=== PATIENT | female | born 1975 | race Two or more races ===

== ENCOUNTER 2018-05-13 16:23 | Emergency (ER) | payer OTHER ==
[~2018-05-13] VITALS: Ht 165.1 cm; Wt 71.2 kg
[~2018-05-13 16:23] MED LIST: DOLOGEN CAPLET1 EACH PO; TRAMADOL HCL50 MG PO
[2018-05-13] MEDS ORDERED: TYLENOL ARTHRI650 MG (17:21)
== END 2018-05-13 23:39 | disposition home or self-care (01) ==
LOC: ER 16:23
DX: E86.0 Dehydration (principal); R53.1 Weakness

== ENCOUNTER 2019-04-01 14:43 | Emergency (ER) | payer OTHER ==
[~2019-04-01] VITALS: Ht 165.1 cm; Wt 59.9 kg
[~2019-04-01 14:43] MED LIST changes: +TYLENOL ARTHRI650 MG
== END 2019-04-01 19:20 | disposition home or self-care (01) ==
LOC: ER 14:43
DX: M53.1 Cervicobrachial syndrome (principal); M25.561 Pain in right knee; M25.562 Pain in left knee

== ENCOUNTER → 2019-06-22 | Emergency (ER) | payer OTHER ==
[~2019-06-22] VITALS: Ht 165.1 cm; Wt 59.0 kg
[~2019-06-22] MED LIST changes: +ZITHROMAX500 MG PO
== END | disposition home or self-care (01) ==
LOC: ER 09:26
DX: R07.89 Other chest pain (principal); R05 Cough; B96.0 Mycoplasma pneumoniae [M. pneumoniae] as the cause of diseases classified elsewhere

== ENCOUNTER 2019-10-10 10:14 | Emergency (ER) | payer OTHER ==
[~2019-10-10] VITALS: Ht 165.1 cm; Wt 53.5 kg
[2019-10-10] MEDS ORDERED: PREVACID15 MG PO (10:23)
[2019-10-10] MEDS ORDERED: TYLENOL ARTHRI650 MG PO (10:24)
== END 2019-10-10 21:19 | disposition home or self-care (01) ==
LOC: ER 10:14
DX: K63.89 Other specified diseases of intestine (principal); K50.018 Crohn's disease of small intestine with other complication

== ENCOUNTER 2020-01-04 22:42 | Emergency (ER) | payer OTHER ==
[~2020-01-04] VITALS: Ht 165.1 cm; Wt 51.3 kg
[~2020-01-04 22:42] MED LIST changes: +PREVACID15 MG PO; +TYLENOL ARTHRI650 MG PO
[2020-01-04] MEDS ORDERED: PROTONIX20 MG (22:51)
[2020-01-04] MEDS ORDERED: RAYOS1 MG (22:52)
[2020-01-04] MEDS ORDERED: PEPCID20 MG (22:52)
[2020-01-05] MEDS ORDERED: PROTONIX40 MG PO (03:56)
[2020-01-05] MEDS ORDERED: PEPCID40 MG PO (03:56)
== END 2020-01-05 04:12 | disposition home or self-care (01) ==
LOC: ER 22:42
DX: K50.00 Crohn's disease of small intestine without complications (principal); R10.13 Epigastric pain; F41.8 Other specified anxiety disorders

== ENCOUNTER 2020-02-17 19:59 | Emergency (ER) | payer OTHER ==
[~2020-02-17] VITALS: Ht 165.1 cm; Wt 52.2 kg
[~2020-02-17 19:59] MED LIST changes: +PEPCID20 MG; +PEPCID40 MG PO; +PROTONIX20 MG; +PROTONIX40 MG PO; +RAYOS1 MG
== END 2020-02-18 07:54 | disposition home or self-care (01) ==
LOC: ER 19:59
DX: K59.09 Other constipation (principal); K50.90 Crohn's disease, unspecified, without complications; R10.31 Right lower quadrant pain

== ENCOUNTER 2020-12-10 13:12 | Emergency (ER) | payer OTHER ==
[~2020-12-10] VITALS: Ht 165.1 cm; Wt 49.4 kg
[2020-12-10] MEDS ORDERED: HUMIRA PEN40 MG/0.2 SUBCUTANEO (13:28)
[2020-12-10] MEDS ORDERED: PEPCID AC20 MG PO (17:34)
[2020-12-10] MEDS ORDERED: LEVSIN/SL0.125 MG PO (17:34)
[2020-12-10] MEDS ORDERED: ONDANSETRON ODT4 MG PO (17:34)
== END 2020-12-10 17:49 ==
LOC: ER 13:12
DX: K29.70 Gastritis, unspecified, without bleeding (principal); Z20.822 Contact with and (suspected) exposure to COVID-19

== ENCOUNTER 2020-12-10 22:48 | Emergency (ER) | payer OTHER ==
[~2020-12-10] VITALS: Ht 165.1 cm; Wt 49.9 kg
[~2020-12-10 22:48] MED LIST changes: +HUMIRA PEN40 MG/0.2 SUBCUTANEO; +LEVSIN/SL0.125 MG PO; +ONDANSETRON ODT4 MG PO; +PEPCID AC20 MG PO
== END 2020-12-11 10:23 | disposition left against medical advice (07) ==
LOC: ER 22:48
DX: R10.13 Epigastric pain (principal); F41.8 Other specified anxiety disorders; R07.89 Other chest pain; K59.09 Other constipation; K50.90 Crohn's disease, unspecified, without complications; K86.0 Alcohol-induced chronic pancreatitis; R05 Cough; R53.1 Weakness; K52.89 Other specified noninfective gastroenteritis and colitis; A49.3 Mycoplasma infection, unspecified site; R21 Rash and other nonspecific skin eruption; Z20.822 Contact with and (suspected) exposure to COVID-19

== ENCOUNTER 2021-02-13 19:01 | Emergency (ER) | payer OTHER ==
[~2021-02-13] VITALS: Ht 165.1 cm; Wt 47.6 kg
[2021-02-13] MEDS ORDERED: IMURAN50 MG PO (19:32)
== END 2021-02-14 15:05 | disposition home or self-care (01) ==
LOC: ER 19:01
DX: K52.89 Other specified noninfective gastroenteritis and colitis (principal); K50.90 Crohn's disease, unspecified, without complications; R10.13 Epigastric pain; R19.7 Diarrhea, unspecified; R11.11 Vomiting without nausea

== ENCOUNTER 2021-03-05 14:45 | Outpatient (CLI) | payer OTHER ==
[~2021-03-05 14:45] MED LIST changes: +IMURAN50 MG PO
== END 2021-03-05 14:57 | disposition home or self-care (01) ==
LOC: RAD 14:45
PROVIDERS: ATTEND Specialist
DX: R07.89 Other chest pain (principal); J45.998 Other asthma

== ENCOUNTER 2021-09-20 16:44 | Emergency (ER) | payer OTHER ==
[~2021-09-20] VITALS: Ht 165.1 cm; Wt 53.5 kg
[2021-09-20] MEDS ORDERED: STELARA45 MG/0.1 (17:55)
== END 2021-09-20 20:29 | disposition home or self-care (01) ==
LOC: ER 16:44
DX: M54.9 Dorsalgia, unspecified (principal); R10.13 Epigastric pain; K51.80 Other ulcerative colitis without complications; Z88.8 Allergy status to other drugs, medicaments and biological substances

== ENCOUNTER → 2022-01-04 | Emergency (ER) | payer OTHER ==
[~2022-01-04] VITALS: Ht 165.1 cm; Wt 55.8 kg
[~2022-01-04] MED LIST changes: +MEDROLPACK PO; +NORFLEX100MG PO; +STELARA45 MG/0.1
== END | disposition home or self-care (01) ==
LOC: ER 00:23
DX: R07.89 Other chest pain (principal); R00.2 Palpitations; T50.905A Adverse effect of unspecified drugs, medicaments and biological substances, initial encounter; Y92.9 Unspecified place or not applicable; Z88.6 Allergy status to analgesic agent; Z88.8 Allergy status to other drugs, medicaments and biological substances; M79.7 Fibromyalgia

== ENCOUNTER 2023-04-09 16:03 | Emergency (ER) | payer OTHER ==
[~2023-04-09] VITALS: Ht 165.1 cm; Wt 70.3 kg
== END 2023-04-09 18:22 | disposition home or self-care (01) ==
LOC: ER 16:04
DX: R05.9 Cough, unspecified (principal); Z20.822 Contact with and (suspected) exposure to COVID-19; Z88.6 Allergy status to analgesic agent; Z88.8 Allergy status to other drugs, medicaments and biological substances

== ENCOUNTER 2024-07-16 13:48 | Emergency (ER) | payer OTHER ==
[~2024-07-16] VITALS: Ht 165.1 cm; Wt 59.0 kg
[2024-07-16 17:32] LABS: HEMATOCRIT 35.5 % (36.0-45.00); HEMOGLOBIN 11.4 g/dL (12.0-15.00); MEAN CELL VOLUME 75.7 fL (80.00-100.00); MEAN CORPUSCULAR HEMOGLOBIN 24.3 pg (27.00-32.0); MEAN CORPUSCULAR HGB CONC 32.1 g/dl (32.0-36.0); PLATELET COUNT 482 K/uL (150-450); RED BLOOD COUNT 4.69 M/uL (4.00-6.00); RED CELL DISTRIBUTION WIDTH 15.2 % (11.5-14.5)
[2024-07-16 18:00] LABS: CALCIUM 8.8 mg/dL (8.5-10.1); CREATININE SERUM 0.63 mg/dL (0.55-1.02); GFR 100.44; POTASSIUM 3.82 mEq/L (3.5-5.1)
[2024-07-16 18:23] LABS: PH,URINE 5.5 (5.0-8.0); URINE APPEARANCE Clear; URINE BILIRRUBIN Negative (NEGATIVE); URINE BLOOD Negative; URINE COLOR Yellow; URINE GLUCOSE Negative (NEGATIVE); URINE KETONE Negative (NEGATIVE); URINE LEUKOCYTE Negative; URINE NITRATE Negative; URINE PROTEIN Trace (NEGATIVE); URINE UROBILINOGEN 0.2 E.U./dl
[2024-07-16 18:27] LABS: URINE BACTERIA 318.2 uL (0.0-1933); URINE EPITHELIAL CELLS 8.5 uL (0.0-38.8); URINE WBC 5.3 uL (0.0-23.2)
[2024-07-16 18:35] LABS: URINE CAST 0.14 uL (0.0-1.40)
[2024-07-16 18:56] LABS: INFLUENZA A AG NEGATIVE (NEGATIVE)
[2024-07-16 18:58] LABS: COVID-19 AG NEGATIVE (NEGATIVE)
== END 2024-07-16 19:20 | disposition home or self-care (01) ==
LOC: ER 13:49
PROVIDERS: General Practice
DX: R53.1 Weakness (principal); Z88.6 Allergy status to analgesic agent; Z20.822 Contact with and (suspected) exposure to COVID-19

== ENCOUNTER 2024-10-19 17:05 | Emergency (ER) | payer OTHER ==
[~2024-10-19] VITALS: Ht 165.1 cm; Wt 56.7 kg
[2024-10-19 17:12] VITALS: BP 109/78; O2SAT 99
[2024-10-19] MEDS ORDERED: BUTALB/ACETAMINOPHEN/CAFFEINE 1 TAB TABLET PO ONE (18:00)
== END 2024-10-19 20:36 | disposition home or self-care (01) ==
LOC: ER 17:06
DX: M62.830 Muscle spasm of back (principal); M53.3 Sacrococcygeal disorders, not elsewhere classified; Z88.8 Allergy status to other drugs, medicaments and biological substances; Z88.6 Allergy status to analgesic agent